=== PATIENT | male | born 1960 | race African-American/Black ===

== ENCOUNTER 2018-10-25 09:12 | Inpatient (IN) | payer OTHER ==
[2018-10-25 09:40] VITALS: BMI 18.4
--- NOTE | 2018-10-25 10:39 | HP ---
COWS - Scale Resting Pulse: 0= [place] 80 or Below Sweatin= Chills/Flushing Restless Observation: 1= Difficult to Sit Still Pupil Size: 1= Pupils >than Normal Bone or Joint Aches: 2= Severe Diffuse Aches Runny Nose/ Eye Tearin= Runny Nose/Eyes GI Upset > 30mins: 1= Stomach Cramp Tremor Observation: 1= Tremor [place], Not Seen Yawning Observation: 2= >3x During Session Anxiety or Irritability: 1=Feels Anxious/Irritable Goose Flesh Skin: 3=Piloerection COWS Score: 15 CIWA Score - Admission Criteria OASAS Guidelines: Admission for Medically Managed Detox: Requires at least one of the followin. CIWA greater than 12 2. Seizures within the past 24 hours 3. Delirium tremens within the past 24 hours 4. Hallucinations within the past 24 hours 5. Acute intervention needed for co occurring medical disorder 6. Acute intervention needed for co occurring psychiatric disorder 7. Severe withdrawal that cannot be handled at a lower level of care (continued vomiting, continued diarrhea, abnormal vital signs) requiring intravenous medication and/or fluids 8. Admission ROS [facility] Chief Complaint: WITHDRAWAL SYMPTOMS Allergies/Adverse Reactions: Allergies Allergy/AdvReac Type Severity Reaction Status Date / Time No Known Allergies Allergy Verified 10/25/18 10:22 History of Present Illness: 58 Y.O. MAN WITH A HISTORY OF HEROIN AND COCAINE DEPENDENCE IS HERE SEEKING DETOX. HE WAS PREVIOUSLY HERE FOR DETOX IN 2007. DOES NOT HAVE SIGNIFICANT PERIOD OF ILLICIT DRUG ABSTINENCE. Exam Limitations: No Limitations - Ebola screening Have you traveled outside of the country in the last 21 days: No Have you had contact with anyone from an Ebola affected area: No Have you been sick,other than usual withdrawal symptoms: No Do you have a fever: No - Review of Systems Constitutional: Chills, Loss of Appetite, Unintentional Wgt. Loss EENT: reports: Tearing, Nose Congestion Respiratory: reports: No Symptoms reported Cardiac: reports: No Symptoms Reported GI: reports: No Symptoms Reported : reports: No Symptoms Reported Musculoskeletal: reports: Back Pain Integumentary: reports: No Symptoms Reported Neuro: reports: Headache Endocrine: reports: No Symptoms Reported Hematology: reports: No Symptoms Reported Psychiatric: reports: Orientated x3, Depressed Other Systems: Reviewed and Negative Patient History - Patient Medical History Hx Anemia: No Hx Asthma: No Hx Chronic Obstructive Pulmonary Disease (COPD): No Hx Cancer: No Hx Cardiac Disorders: No Hx Congestive Heart Failure: No Hx Hypertension: Yes Hx Hypercholesterolemia: No Hx Pacemaker: No HX Cerebrovascular Accident: No Hx Seizures: No Hx Dementia: No Hx Diabetes: No Hx Gastrointestinal Disorders: No Hx Liver Disease: No Hx Genitourinary Disorders: No Hx Sexually Transmitted Disorders: No Hx Renal Disease (ESRD): No Hx Thyroid Disease: No Hx Human Immunodeficiency Virus (HIV): No Hx Hepatitis C: No Hx Depression: Yes Hx Suicide Attempt: No Hx Bipolar Disorder: No Hx Schizophrenia: No Other Medical History: ACUTE KIDNEY INJURY 2 YEARS AGO - Patient Surgical History Past Surgical History: Yes Hx Abdominal Surgery: Yes (HERNIA REPAIR 2002) Anesthesia Reaction: No - PPD History Previous Implant?: Yes Documented Results: Negative w/o proof PPD to be Administered?: Yes - Reproductive History Patient is a Female of Child Bearing Age (11 -55 yrs old): No - Smoking Cessation Smoking history: Current every day smoker Have you smoked in the past 12 months: Yes Aproximately how many cigarettes per day: 5 Initiated information on smoking cessation: Yes 'Breaking Loose' booklet given: 10/25/18 - Substance & Tx. History Hx Substance Use: Yes Substance Use Type: Cocaine, Heroin Hx Substance Use Treatment: Yes (DETOX: 2007) - Substances Abused Heroin Route: Inhalation Frequency: Daily Amount used: 5-6 bags Age of first use: 20 Date of Last Use: 10/25/18 Cocaine Route: Injection Frequency: Daily Amount used: $10 Age of first use: 20 Date of Last Use: 10/23/18 Family Disease History - Family Disease History Family History: Denies Admission Physical Exam [facility] - Vital Signs Vital Signs: Vital Signs - 24 hr 10/25/18 09:37 Temperature 97.9 F Pulse Rate 54 L Respiratory 14 Rate Blood Pressure 155/102 H - Physical General Appearance: Yes: Thin HEENTM: Yes: Hearing grossly Normal, Normal Voice Respiratory: Yes: Chest Non-Tender, Lungs Clear, Normal Breath Sounds, No Respiratory Distress, No Accessory Muscle Use Neck: Yes: No masses,lesions,Nodules Breast: Yes: Breast Exam Deferred Cardiology: Yes: Bradycardia Abdominal: Yes: Non Tender, Flat, Soft Genitourinary: Yes: Within Normal Limits (NO COMPLAINTS REPORTED) Back: Yes: Normal Inspection Musculoskeletal: Yes: full range of Motion, Gait Steady Extremities: Yes: Normal Inspection, Normal Range of Motion, Non-Tender Neurological: Yes: Fully Oriented, Alert, Normal Mood/Affect, Normal Response Integumentary: Yes: Normal Color, Dry, Warm Lymphatic: Yes: Within Normal Limits - Diagnostic (1) Opioid dependence with withdrawal Current Visit: Yes Status: Chronic (2) Cocaine dependence Current Visit: Yes Status: Chronic (3) Nicotine dependence Current Visit: Yes Status: Chronic (4) Underweight Current Visit: Yes Status: Acute (5) Hypertension Current Visit: Yes Status: Chronic Cleared for Admission [facility] - Detox or Rehab [facility] Level of Care: Medically Managed Detox Regimen/Protocol: Methadone [facility] Breath Alcohol Content Breath Alcohol Content: 0 Urine Drug Screen - Results Drug Screen Negative: No Urine Drug Screen Results: [place]AN[place]-Cocaine, OPI-Opiates
[2018-10-25] MEDS ORDERED: LOPERAMIDE HCL 2 MG CAPSULE PO PRN (10:49)
[2018-10-25] MEDS ORDERED: hydrOXYzine PAMOATE 50 MG CAPSULE (FP) PO PRN (10:49)
[2018-10-25] MEDS ORDERED: ACETAMINOPHEN 325 MG TABLET (FP) PO PRN (10:49)
[2018-10-25] MEDS ORDERED: MENTHOL/PHENOL 1 EACH UD MM PRN (10:49)
[2018-10-25] MEDS ORDERED: MAGNESIUM HYDROX 2400MG/30ML ORAL SUSPENSION 30 ML CUP PO PRN (10:49)
[2018-10-25] MEDS ORDERED: MAGNESIUM CITRATE 300 ML BOTTLE PO PRN (10:49)
[2018-10-25] MEDS ORDERED: MAG HYDROX/AL HYDROX/SIMETH 30 ML UNIT-DOSE CUP PO PRN (10:49)
[2018-10-25] MEDS ORDERED: NICOTINE POLACRILEX 2 MG GUM BUC PRN (10:49)
[2018-10-25] MEDS ORDERED: guaiFENesin/D-METHORPHAN HB 10 ML UNIT-DOSE CUPS PO PRN (10:49)
[2018-10-25] MEDS ORDERED: IBUPROFEN 400 MG TABLET (FP) PO PRN (10:49)
[2018-10-25] MEDS ORDERED: P-EPHED 60MG/TRIPROLIDI 2.5MG TABLET PO PRN (10:49)
[2018-10-25] MEDS ORDERED: METHADONE HCL 10 MG TABLET (FOR DETOX USE ONLY) PO ONE ×2 (12:45→23:00)
--- NOTE | 2018-10-25 13:19 | CONSULT ---
[facility] Psychiatric Consult - Data Date of interview: 10/25/18 Admission source: [facility] Identifying data: This is a 58 years old male, , father of three, living with brother, unemployed, with no financial report, here seeking detox reporting withdrawal symptoms. Patient denies psychiatric hospitalization history, edenies suicidal, homicidal history as well. Substance Abuse History: Smoking history: Current every day smoker. Have you smoked in the past 12 months: Yes. Aproximately how many cigarettes per day: 5. Initiated information on smoking cessation: Yes. 'Breaking Loose' booklet given: 10/25/18. - Substance & Tx. History. Hx Substance Use: Yes. Substance Use Type: Cocaine, Heroin. Hx Substance Use Treatment: Yes (DETOX: 2007). - Substances Abused. Heroin. Route: Inhalation. Frequency: Daily. Amount used: 5-6 bags. Age of first use: 20. Date of Last Use: 10/25/18. Cocaine. Route: Injection. Frequency: Daily. Amount used: $10. Age of first use: 20. Date of Last Use: 10/23/18 Medical History: Weight loss history, HTN Psychiatric History: Patient reports history of anxiety and depression, reports taking prior to admission: Seropquel 150mg po qhs with good rersponse. Denies suicidal, homicidal history Physical/Sexual Abuse/Trauma History: Denies Additional Comment: Seropquel 150mg po qhs Mental Status Exam - Mental Status Exam Alert and Oriented to: Person Cognitive Function: Fair Patient Appearance: Unkempt Mood: Sad Affect: Mood Congruent Patient Behavior: Cooperative Speech Pattern: Appropriate Voice Loudness: Mildly Soft/Quiet Thought Process: Circumstantial Thought Disorder: Being Controlled Hallucinations: Denies Suicidal Ideation: Denies Homicidal Ideation: Denies Insight/Judgement: Fair Sleep: Difficulty falling asleep Appetite: Weight loss Muscle strength/Tone: Mild Hypotonicity Gait/Station: Shuffling Additional Comments: Seropquel 150mg po qhs Psychiatric Findings - Problem List ([place] 1, 2,3) (1) Weight loss Current Visit: Yes Status: Acute (2) Cocaine dependence Current Visit: Yes Status: Chronic (3) Hypertension Current Visit: Yes Status: Chronic (4) Nicotine dependence Current Visit: Yes Status: Chronic (5) Opioid dependence with withdrawal Current Visit: Yes Status: Chronic - Initial Treatment Plan Initial Treatment Plan: Seropquel 150mg po qhs
[2018-10-25] MEDS: amLODIPine BESYLATE 5 MG TABLET (FP) PO SCH (13:37)
[2018-10-25] MEDS: diazePAM 5 MG TABLET PO PRN (13:37)
[2018-10-25] MEDS ORDERED: MELATONIN 5 MG TABLETS PO PRN (22:00)
[2018-10-25] MEDS: THIAMINE HCL 100 MG TABLET (FP) PO SCH (22:45)
[2018-10-25] MEDS: QUEtiapine FUMARATE 50 MG TABLET PO SCH (22:45)
[2018-10-26] MEDS ORDERED: METHADONE HCL 10 MG TABLET (FOR DETOX USE ONLY) PO ONE (10:00)
[2018-10-26] MEDS: amLODIPine BESYLATE 5 MG TABLET (FP) PO SCH (10:10)
[2018-10-26] MEDS: PRENATAL VITAMINS W/ FOLIC ACID TABLET (FP) PO SCH (10:10)
[2018-10-26 11:40] LABS: HEMOGLOBIN 13.2 GM/dL (11.7-16.9); MCH 28.8 pg (25.7-33.7); MCHC 32.2 g/dl (32.0-35.9); MEAN CELL VOLUME 89.3 fl (80-96); MEAN PLT VOLUME 10.2 fl (7.5-11.1); PLATELET COUNT 195 K/MM3 (134-434); RBC 4.59 M/mm3 (4.00-5.60); RDW 14.6 % (11.9-15.9); WHITE BLOOD COUNT 4.2 K/mm3 (4.0-10.0)
[2018-10-26 11:45] LABS: ALBUMIN 3.9 g/dl (3.4-5.0); ALK PHOS 72 U/L (45-117); ANION GAP 7 MMOL/L (8-16); BILIRUBIN,TOTAL 0.8 mg/dL (0.2-1); BLOOD UREA NITROGEN 12 mg/dL (7-18); CALCIUM 8.9 mg/dL (8.5-10.1); CHLORIDE 106 mmol/L (98-107); CO2 28 mmol/L (21-32); CREATININE 1.2 mg/dL (0.55-1.3); GLUCOSE,RANDOM 214 mg/dL (74-106); POTASSIUM 3.5 mmol/L (3.5-5.1); SGOT/AST 23 U/L (15-37); SGPT/ALT 24 U/L (13-61); SODIUM 141 mmol/L (136-145); TOT PROT 6.8 g/dl (6.4-8.2)
[2018-10-26] MEDS ORDERED: TRIMETHOBENZAMIDE HCL 200MG/2ML INJ IM PRN (13:45)
--- NOTE | 2018-10-26 13:51 | PN ---
BHS COWS - Scale Resting Pulse: 0= [place] 80 or Below Sweatin= Chills/Flushing Restless Observation: 0= Sits Still Pupil Size: 0= Normal to Room Light Bone or Joint Aches: 2= Severe Diffuse Aches Runny Nose/ Eye Tearin= None GI Upset > 30mins: 2= Nausea/Diarrhea Tremor Observation of Outstretched Hands: 0= None Yawning Observation: 1= 1-2x During Session Anxiety or Irritability: 2=Irritable/Anxious Goose Flesh Skin: 3=Piloerection COWS Score: 11 BHS Progress Note (SOAP) Subjective: Nausea, Chills, Body Aches, Sweating, Fatigue. Objective: PATIENT A & O X 3. IN NO ACUTE DISTRESS. PATIENT DENIES CHEST PAIN. 10/26/18 13:49 Vital Signs Temperature 98.8 F 10/26/18 13:06 Pulse Rate 63 10/26/18 13:06 Respiratory Rate 16 10/26/18 13:06 Blood Pressure 110/63 10/26/18 13:06 O2 Sat by Pulse Oximetry (%) Laboratory Tests 10/25/18 10/26/18 10/26/18 11:00 05:45 05:45 WBC 4.2 RBC 4.59 Hgb 13.2 Hct 41.0 MCV 89.3 MCH 28.8 MCHC 32.2 RDW 14.6 Plt Count 195 MPV 10.2 Sodium 141 Potassium 3.5 Chloride 106 Carbon Dioxide 28 Anion Gap 7 L BUN 12 Creatinine 1.2 Creat Clearance w eGFR > 60 Random Glucose 214 H Calcium 8.9 Total Bilirubin 0.8 AST 23 ALT 24 Alkaline Phosphatase 72 Total Protein 6.8 Albumin 3.9 RPR Titer HIV 1&2 Antibody Screen Negative HIV P24 Antigen Negative 10/26/18 05:45 WBC RBC Hgb Hct MCV MCH MCHC RDW Plt Count MPV Sodium Potassium Chloride Carbon Dioxide Anion Gap BUN Creatinine Creat Clearance w eGFR Random Glucose Calcium Total Bilirubin AST ALT Alkaline Phosphatase Total Protein Albumin RPR Titer Nonreactive HIV 1&2 Antibody Screen HIV P24 Antigen LABS NOTED. 10/26/18 13:50 Assessment: 10/26/18 13:49 WITHDRAWAL SYMPTOMS. Plan: CONTINUE DETOX. PRN TIGAN IM FOR NAUSEA. BGM ACBK FOR ELEVATED ADMISSION RANDOM GLUCOSE LEVEL. INCREASE DAILY PO FLUID INTAKE.
[2018-10-26] MEDS: NICOTINE 14 MG/24 HOURS TOPICAL PATCH TD SCH (13:52)
--- NOTE | 2018-10-26 18:19 | EKG ---
Test Reason : Blood Pressure : / mmHG Vent. Rate : 059 BPM Atrial Rate : 059 BPM P-R Int : 126 ms QRS Dur : 142 ms QT Int : 468 ms P-R-T Axes : 061 022 033 degrees QTc Int : 463 ms SINUS BRADYCARDIA RIGHT BUNDLE BRANCH BLOCK T WAVE ABNORMALITY, CONSIDER ANTERIOR ISCHEMIA ABNORMAL ECG NO PREVIOUS ECGS AVAILABLE Confirmed by MD MATT, MAYDA ([id number]) on 10/26/2018 6:19:34 PM Referred By: Confirmed By:MAYDA GUTIERREZ MD
[2018-10-26] MEDS: THIAMINE HCL 100 MG TABLET (FP) PO SCH (22:16)
[2018-10-26] MEDS: QUEtiapine FUMARATE 50 MG TABLET PO SCH (22:16)
[2018-10-26] MEDS: diazePAM 5 MG TABLET PO PRN (22:17)
[2018-10-27] MEDS ORDERED: METHADONE HCL 5 MG TABLET (FOR DETOX USE ONLY) PO ONE (10:00)
[2018-10-27] MEDS: amLODIPine BESYLATE 5 MG TABLET (FP) PO SCH (10:35)
[2018-10-27] MEDS: PRENATAL VITAMINS W/ FOLIC ACID TABLET (FP) PO SCH (10:35)
[2018-10-27] MEDS: NICOTINE 14 MG/24 HOURS TOPICAL PATCH TD SCH (10:35)
--- NOTE | 2018-10-27 15:12 | PN ---
BHS COWS - Scale Resting Pulse: 0= [place] 80 or Below Sweatin= Chills/Flushing Restless Observation: 1= Difficult to Sit Still Pupil Size: 1= Pupils >than Normal Bone or Joint Aches: 1= Mild Discomfort Runny Nose/ Eye Tearin= Nasal Congestion GI Upset > 30mins: 1= Stomach Cramp Tremor Observation of Outstretched Hands: 1= Tremor [place], Not Seen Yawning Observation: 1= 1-2x During Session Anxiety or Irritability: 1=Feels Anxious/Irritable Goose Flesh Skin: 0=Smooth Skin COWS Score: 9 BHS Progress Note (SOAP) Subjective: body aches joints pain tremor sweating Objective: 10/27/18 15:13 Vital Signs Temperature 99.7 F H 10/27/18 13:15 Pulse Rate 51 L 10/27/18 13:15 Respiratory Rate 18 10/27/18 13:15 Blood Pressure 131/77 10/27/18 13:15 O2 Sat by Pulse Oximetry (%) Laboratory Last Values WBC 4.2 K/mm3 (4.0-10.0) 10/26/18 05:45 RBC 4.59 M/mm3 (4.00-5.60) 10/26/18 05:45 Hgb 13.2 GM/dL (11.7-16.9) 10/26/18 05:45 Hct 41.0 % (35.4-49) 10/26/18 05:45 MCV 89.3 fl (80-96) 10/26/18 05:45 MCH 28.8 pg (25.7-33.7) 10/26/18 05:45 MCHC 32.2 g/dl (32.0-35.9) 10/26/18 05:45 RDW 14.6 % (11.9-15.9) 10/26/18 05:45 Plt Count 195 K/MM3 (134-434) 10/26/18 05:45 MPV 10.2 fl (7.5-11.1) 10/26/18 05:45 Sodium 141 mmol/L (136-145) 10/26/18 05:45 Potassium 3.5 mmol/L (3.5-5.1) 10/26/18 05:45 Chloride 106 mmol/L (98-107) 10/26/18 05:45 Carbon Dioxide 28 mmol/L (21-32) 10/26/18 05:45 Anion Gap 7 MMOL/L (8-16) L 10/26/18 05:45 BUN 12 mg/dL (7-18) 10/26/18 05:45 Creatinine 1.2 mg/dL (0.55-1.3) 10/26/18 05:45 Creat Clearance w eGFR > 60 (>60) 10/26/18 05:45 Random Glucose 214 mg/dL (74-106) H 10/26/18 05:45 Calcium 8.9 mg/dL (8.5-10.1) 10/26/18 05:45 Total Bilirubin 0.8 mg/dL (0.2-1) 10/26/18 05:45 AST 23 U/L (15-37) 10/26/18 05:45 ALT 24 U/L (13-61) 10/26/18 05:45 Alkaline Phosphatase 72 U/L (45-117) 10/26/18 05:45 Total Protein 6.8 g/dl (6.4-8.2) 10/26/18 05:45 Albumin 3.9 g/dl (3.4-5.0) 10/26/18 05:45 RPR Titer Nonreactive (NONREACTIVE) 10/26/18 05:45 HIV 1&2 Antibody Screen Negative 10/25/18 11:00 HIV P24 Antigen Negative 10/25/18 11:00 lab noted Assessment: 10/27/18 15:14 withdrawal sx Plan: continue detox
[2018-10-27] MEDS: QUEtiapine FUMARATE 50 MG TABLET PO SCH (22:06)
[2018-10-27] MEDS: THIAMINE HCL 100 MG TABLET (FP) PO SCH (22:06)
[2018-10-28] MEDS ORDERED: METHADONE HCL 5 MG TABLET (FOR DETOX USE ONLY) PO ONE (10:00)
[2018-10-28] MEDS: PRENATAL VITAMINS W/ FOLIC ACID TABLET (FP) PO SCH (10:51)
[2018-10-28] MEDS: amLODIPine BESYLATE 5 MG TABLET (FP) PO SCH (10:51)
[2018-10-28] MEDS: NICOTINE 14 MG/24 HOURS TOPICAL PATCH TD SCH (10:51)
--- NOTE | 2018-10-28 12:56 | PN ---
BHS Progress Note (SOAP) Subjective: body aches joints pain gi distress restlessness Objective: 10/28/18 12:55 Vital Signs Temperature 97.6 F 10/28/18 09:27 Pulse Rate 82 10/28/18 09:27 Respiratory Rate 18 10/28/18 09:27 Blood Pressure 124/75 10/28/18 09:27 O2 Sat by Pulse Oximetry (%) Laboratory Last Values WBC 4.2 K/mm3 (4.0-10.0) 10/26/18 05:45 RBC 4.59 M/mm3 (4.00-5.60) 10/26/18 05:45 Hgb 13.2 GM/dL (11.7-16.9) 10/26/18 05:45 Hct 41.0 % (35.4-49) 10/26/18 05:45 MCV 89.3 fl (80-96) 10/26/18 05:45 MCH 28.8 pg (25.7-33.7) 10/26/18 05:45 MCHC 32.2 g/dl (32.0-35.9) 10/26/18 05:45 RDW 14.6 % (11.9-15.9) 10/26/18 05:45 Plt Count 195 K/MM3 (134-434) 10/26/18 05:45 MPV 10.2 fl (7.5-11.1) 10/26/18 05:45 Sodium 141 mmol/L (136-145) 10/26/18 05:45 Potassium 3.5 mmol/L (3.5-5.1) 10/26/18 05:45 Chloride 106 mmol/L (98-107) 10/26/18 05:45 Carbon Dioxide 28 mmol/L (21-32) 10/26/18 05:45 Anion Gap 7 MMOL/L (8-16) L 10/26/18 05:45 BUN 12 mg/dL (7-18) 10/26/18 05:45 Creatinine 1.2 mg/dL (0.55-1.3) 10/26/18 05:45 Creat Clearance w eGFR > 60 (>60) 10/26/18 05:45 Random Glucose 214 mg/dL (74-106) H 10/26/18 05:45 Calcium 8.9 mg/dL (8.5-10.1) 10/26/18 05:45 Total Bilirubin 0.8 mg/dL (0.2-1) 10/26/18 05:45 AST 23 U/L (15-37) 10/26/18 05:45 ALT 24 U/L (13-61) 10/26/18 05:45 Alkaline Phosphatase 72 U/L (45-117) 10/26/18 05:45 Total Protein 6.8 g/dl (6.4-8.2) 10/26/18 05:45 Albumin 3.9 g/dl (3.4-5.0) 10/26/18 05:45 RPR Titer Nonreactive (NONREACTIVE) 10/26/18 05:45 HIV 1&2 Antibody Screen Negative 10/25/18 11:00 HIV P24 Antigen Negative 10/25/18 11:00 lab noted Assessment: 10/28/18 12:55 withdrawal sx Plan: continue detox
[2018-10-28] MEDS: QUEtiapine FUMARATE 50 MG TABLET PO SCH (22:17)
[2018-10-28] MEDS: THIAMINE HCL 100 MG TABLET (FP) PO SCH (22:17)
[2018-10-29] MEDS ORDERED: METHADONE HCL 10 MG TABLET (FOR DETOX USE ONLY) PO ONE (10:00)
[2018-10-29] MEDS: NICOTINE 14 MG/24 HOURS TOPICAL PATCH TD SCH (10:29)
[2018-10-29] MEDS: amLODIPine BESYLATE 5 MG TABLET (FP) PO SCH (10:29)
[2018-10-29] MEDS: PRENATAL VITAMINS W/ FOLIC ACID TABLET (FP) PO SCH (10:29)
--- NOTE | 2018-10-29 16:35 | PN ---
BHS Progress Note (SOAP) Subjective: Body Aches, Sweating. Objective: PATIENT A & O X 3. IN NO ACUTE DISTRESS. 10/29/18 16:34 Vital Signs Temperature 99.4 F 10/29/18 13:36 Pulse Rate 54 L 10/29/18 13:36 Respiratory Rate 18 10/29/18 13:36 Blood Pressure 108/66 10/29/18 13:36 O2 Sat by Pulse Oximetry (%) Laboratory Tests 10/25/18 10/26/18 10/26/18 11:00 05:45 05:45 WBC 4.2 RBC 4.59 Hgb 13.2 Hct 41.0 MCV 89.3 MCH 28.8 MCHC 32.2 RDW 14.6 Plt Count 195 MPV 10.2 Sodium 141 Potassium 3.5 Chloride 106 Carbon Dioxide 28 Anion Gap 7 L BUN 12 Creatinine 1.2 Creat Clearance w eGFR > 60 POC Glucometer Random Glucose 214 H Calcium 8.9 Total Bilirubin 0.8 AST 23 ALT 24 Alkaline Phosphatase 72 Total Protein 6.8 Albumin 3.9 RPR Titer HIV 1&2 Antibody Screen Negative HIV P24 Antigen Negative 10/26/18 10/26/18 05:45 16:33 WBC RBC Hgb Hct MCV MCH MCHC RDW Plt Count MPV Sodium Potassium Chloride Carbon Dioxide Anion Gap BUN Creatinine Creat Clearance w eGFR POC Glucometer 101 Random Glucose Calcium Total Bilirubin AST ALT Alkaline Phosphatase Total Protein Albumin RPR Titer Nonreactive HIV 1&2 Antibody Screen HIV P24 Antigen LABS NOTED. Assessment: 10/29/18 16:34 WITHDRAWAL SYMPTOMS. Plan: CONTINUE DETOX.
[2018-10-29] MEDS: QUEtiapine FUMARATE 50 MG TABLET PO SCH (22:18)
[2018-10-29] MEDS: THIAMINE HCL 100 MG TABLET (FP) PO SCH (22:18)
[2018-10-30] MEDS ORDERED: METHADONE HCL 5 MG TABLET (FOR DETOX USE ONLY) PO ONE (06:00)
[2018-10-30 06:10] VITALS: BP 117/68; PULSE 49; TEMP 97.3
--- NOTE | 2018-10-30 19:52 | DS ---
[facility] Detox Discharge Summary Admission Date: 10/25/18 Discharge Date: 10/30/18 - History Present History: Cocaine Dependence, Opioid Dependence Additional Comments: PATIENT HAD EXPRESSED INTEREST IN ATTENDING [facility] ([place], [place]) FOR AFTERCARE. HOWEVER, NO BEDS AREA AVAILABLE AT [facility] AT THIS TIME. THUS, PATIENT ELECTING TO APPLY ON HIS OWN FOR ADMISSION TO [facility] ([place], [place]) FOR AFTERCARE. PATIENT ADVISED TO FOLLOW-UP FOR HISTORY OF HTN (PATIENT REPORTS HISTORY OF LIMITED COMPLIANCE WITH ANTI- HYPERTENSIVE MEDICATION IN PAST) WITH [facility] [facility] DR. PORRAS ([place], [place] WHEN POSSIBLE. PATIENT VERBALIZED UNDERSTANDING OF RECOMMENDATION. PRESCRIPTION FOR AMLODIPINE SENT TO PATIENT;'S PHARMACY ([facility] [place], [place]) TO COVER PATIENT FOR THE INTERIM. PATIENT WAS DISCHARGED FROM DETOX UNIT NI STABLE MEDICAL CONDITION. Pertinent Past History: HTN, Weight Loss, Depression, History of Acute Kidney Injury, Nicotine Dependence. - Physical Exam Results Vital Signs: Vital Signs Temperature 97.3 F L 10/30/18 06:10 Pulse Rate 49 L 10/30/18 06:10 Respiratory Rate 18 10/30/18 06:10 Blood Pressure 117/68 10/30/18 06:10 O2 Sat by Pulse Oximetry (%) Pertinent Admission Physical Exam Findings: WITHDRAWAL SYMPTOMS. Laboratory Tests 10/25/18 10/26/18 10/26/18 11:00 05:45 05:45 WBC 4.2 RBC 4.59 Hgb 13.2 Hct 41.0 MCV 89.3 MCH 28.8 MCHC 32.2 RDW 14.6 Plt Count 195 MPV 10.2 Sodium 141 Potassium 3.5 Chloride 106 Carbon Dioxide 28 Anion Gap 7 L BUN 12 Creatinine 1.2 Creat Clearance w eGFR > 60 POC Glucometer Random Glucose 214 H Calcium 8.9 Total Bilirubin 0.8 AST 23 ALT 24 Alkaline Phosphatase 72 Total Protein 6.8 Albumin 3.9 RPR Titer HIV 1&2 Antibody Screen Negative HIV P24 Antigen Negative 10/26/18 10/26/18 05:45 16:33 WBC RBC Hgb Hct MCV MCH MCHC RDW Plt Count MPV Sodium Potassium Chloride Carbon Dioxide Anion Gap BUN Creatinine Creat Clearance w eGFR POC Glucometer 101 Random Glucose Calcium Total Bilirubin AST ALT Alkaline Phosphatase Total Protein Albumin RPR Titer Nonreactive HIV 1&2 Antibody Screen HIV P24 Antigen LABS NOTED. - Treatment Hospital Course: Detox Protocol Followed, Detoxed Safely, Responded well, Discharged Condition Good, Rehab Referral Accepted Patient has Accepted a Rehab Referral to: [facility] ([place], [place]). - Medication Discharge Medications: Ambulatory Orders Quetiapine Fumarate [Seroquel -] 150 mg PO HS #0 tablet 03/11/13 Quetiapine Fumarate "Xr" [Seroquel XR] 150 mg PO HS@1999 #30 tablet 08/26/14 Quetiapine Fumarate [Seroquel -] 150 mg PO HS 10/25/18 Quetiapine Fumarate [Seroquel] 100 mg PO HS #60 tab 10/25/18 Amlodipine Besylate [Norvasc -] 5 mg PO DAILY 14 Days #14 tablet 10/30/18 - Diagnosis (1) Weight loss Status: Acute (2) Cocaine dependence Status: Chronic Qualifiers: Substance use status: uncomplicated Qualified Code(s): F14.20 - Cocaine dependence, uncomplicated (3) Hypertension Status: Chronic Qualifiers: Hypertension type: essential hypertension Qualified Code(s): I10 - Essential (primary) hypertension (4) Nicotine dependence Status: Chronic (5) Opioid dependence with withdrawal Status: Acute - AMA Did Patient Leave Against Medical Advice: No
== END 2018-10-30 10:44 | disposition home or self-care (01) | DRG 773 ==
LOC: YASAS 09:12 → MERGE 12:15 → Y3N 12:15
PROVIDERS: ADMIT Neuromusculoskeletal Medicine & OMM; ATTEND Neuromusculoskeletal Medicine & OMM
PROC: HZ2ZZZZ Detoxification Services for Substance Abuse Treatment (ICD-10-PCS; principal; 2018-10-25)
DX: F11.23 Opioid dependence with withdrawal (principal); F14.20 Cocaine dependence, uncomplicated; F17.210 Nicotine dependence, cigarettes, uncomplicated; I10 Essential (primary) hypertension; R00.1 Bradycardia, unspecified
CPT/HCPCS: 36415; 80053; 82962; 85027; 86593; 87389; 93005; 93010

== ENCOUNTER 2019-02-21 10:45 | Inpatient (IN) | payer SELFPAY ==
[2019-02-21 11:56] VITALS: BMI 18.6
--- NOTE | 2019-02-21 13:00 | HP ---
COWS - Scale Resting Pulse: 1= [place] 81-100 Sweatin= Chills/Flushing Restless Observation: 1= Difficult to Sit Still Pupil Size: 1= Pupils >than Normal Bone or Joint Aches: 2= Severe Diffuse Aches Runny Nose/ Eye Tearin= Runny Nose/Eyes GI Upset > 30mins: 2= Nausea/Diarrhea Tremor Observation: 1= Tremor [place], Not Seen Yawning Observation: 2= >3x During Session Anxiety or Irritability: 1=Feels Anxious/Irritable Goose Flesh Skin: 0=Smooth Skin COWS Score: 14 CIWA Score - Admission Criteria OASAS Guidelines: Admission for Medically Managed Detox: Requires at least one of the followin. CIWA greater than 12 2. Seizures within the past 24 hours 3. Delirium tremens within the past 24 hours 4. Hallucinations within the past 24 hours 5. Acute intervention needed for co occurring medical disorder 6. Acute intervention needed for co occurring psychiatric disorder 7. Severe withdrawal that cannot be handled at a lower level of care (continued vomiting, continued diarrhea, abnormal vital signs) requiring intravenous medication and/or fluids 8. Admission ROS [facility] - [facility] Chief Complaint: i need help to stop using heroin and cocaine Allergies/Adverse Reactions: Allergies Allergy/AdvReac Type Severity Reaction Status Date / Time No Known Allergies Allergy Verified 02/21/19 11:45 History of Present Illness: this 58 year old male with heroin and cocaine dependence,seeking detox, withdrawal symptom, multiple admissions in detox,last detox [facility] 10/25/18 to 10/30/18 keep relapsing nicotine dependence 5 cigarette,does not want nicotine replacement weight loss no significant period of sobriety plan for rehab after detox anxiety,depression,insomnia Exam Limitations: No Limitations - Ebola screening Have you traveled outside of the country in the last 21 days: No Have you had contact with anyone from an Ebola affected area: No Do you have a fever: No - Review of Systems Constitutional: Chills, Loss of Appetite, Malaise, Night Sweats, Changes in sleep, Weakness, Unintentional Wgt. Loss EENT: reports: Tearing, Nose Congestion Respiratory: reports: No Symptoms reported Cardiac: reports: No Symptoms Reported GI: reports: Diarrhea, Nausea, Vomiting, Abdominal cramping : reports: No Symptoms Reported Musculoskeletal: reports: Back Pain, Joint Pain, Muscle Pain Integumentary: reports: Dryness Neuro: reports: Headache, Tremors Endocrine: reports: No Symptoms Reported Hematology: reports: No Symptoms Reported Psychiatric: reports: No Sypmtoms Reported, Judgement Intact, Mood/Affect Appropiate, Orientated x3, Anxious, Depressed, other (insomnia) Other Systems: Reviewed and Negative Patient History - Patient Medical History Hx Anemia: No Hx Asthma: No Hx Chronic Obstructive Pulmonary Disease (COPD): No Hx Cancer: No Hx Cardiac Disorders: No Hx Congestive Heart Failure: No Hx Hypertension: Yes (non compliance) Hx Hypercholesterolemia: No Hx Pacemaker: No HX Cerebrovascular Accident: No Hx Seizures: No Hx Dementia: No Hx Diabetes: No Hx Gastrointestinal Disorders: No Hx Liver Disease: No Hx Genitourinary Disorders: No Hx Sexually Transmitted Disorders: No Hx Renal Disease (ESRD): No Hx Thyroid Disease: No Hx Human Immunodeficiency Virus (HIV): No (last 10/30 negative) Hx Hepatitis C: No Hx Depression: Yes (anxiety) Hx Suicide Attempt: No Hx Bipolar Disorder: No Hx Schizophrenia: No Other Medical History: no suicidal,no homicidal,insomnia - Patient Surgical History Past Surgical History: Yes Hx Neurologic Surgery: No Hx Cataract Extraction: No Hx Cardiac Surgery: No Hx Lung Surgery: No Hx Breast Surgery: No Hx Breast Biopsy: No Hx Abdominal Surgery: Yes (HERNIA REPAIR 2002) Hx Appendectomy: No Hx Cholecystectomy: No Hx Genitourinary Surgery: No Hx Section: No Hx Orthopedic Surgery: No Anesthesia Reaction: No - PPD History Previous Implant?: Yes Documented Results: Negative w/proof Implanted On Prior [facility] Admission?: Yes Date: 10/27/18 Results: 0 mm PPD to be Administered?: No - Smoking Cessation Smoking history: Current every day smoker Have you smoked in the past 12 months: Yes Aproximately how many cigarettes per day: 5 Hx Chewing Tobacco Use: No Initiated information on smoking cessation: Yes 'Breaking Loose' booklet given: 02/21/19 - Substance & Tx. History Hx Alcohol Use: No Hx Substance Use: Yes Substance Use Type: Cocaine, Heroin Hx Substance Use Treatment: Yes ([facility] 10/25/18 to 10/30/18) - Substances abused Heroin Substance route: Inhalation Frequency: Daily Amount used: 7 bags Age of first use: 15 Date of last use: 02/21/19 Cocaine Substance route: Inhalation Frequency: 1-2 times per week Amount used: $30 Age of first use: 15 Date of last use: 02/20/19 Crack Substance route: Smoking Frequency: 1-2 times per week Amount used: 1 joint Age of first use: 15 Date of last use: 02/20/19 Family Disease History - Family Disease History Family Disease History: [place]: Mother (breast cancer,), Other: Father ( murmured), Son (deseased) Admission Physical Exam [facility] - Vital Signs Vital Signs: Vital Signs - 24 hr 02/21/19 11:45 Temperature 97.0 F L Pulse Rate 83 Respiratory 20 Rate Blood Pressure 134/93 - Physical General Appearance: Yes: Moderate Distress, Tremorous, Sweating, Anxious HEENTM: Yes: Normal ENT Inspection, [place], Pharynx Normal Respiratory: Yes: Lungs Clear, Normal Breath Sounds, No Respiratory Distress Neck: Yes: Within Normal Limits, Supple, Trachea in good position Breast: Yes: Within Normal Limits Cardiology: Yes: Within Normal Limits, Regular Rhythm, Regular Rate, S1, S2 Abdominal: Yes: Within Normal Limits, Normal Bowel Sounds, Non Tender, Flat, Soft, Surgical Scar (epigastric hernia) Genitourinary: Yes: Within Normal Limits Back: Yes: Muscle Spasm Musculoskeletal: Yes: Back pain, Muscle Pain Extremities: Yes: Tremors 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 NML intact, Fully Oriented, Alert, Motor Strength 5/5 Integumentary: Yes: Dry Lymphatic: Yes: Within Normal Limits - Diagnostic (1) Opioid dependence with withdrawal Current Visit: No Status: Acute (2) Weight loss Current Visit: No Status: Acute (3) Cocaine dependence Current Visit: No Status: Chronic Qualifiers: Substance use status: uncomplicated Qualified Code(s): F14.20 - Cocaine dependence, uncomplicated (4) Hypertension Current Visit: No Status: Chronic Qualifiers: Hypertension type: essential hypertension Qualified Code(s): I10 - Essential (primary) hypertension (5) Nicotine dependence Current Visit: No Status: Chronic (6) Schizoaffective disorder Current Visit: No Status: Chronic (7) Insomnia secondary to depression with anxiety Current Visit: Yes Status: Acute Cleared for Admission [facility] - Detox or Rehab [facility] Level of Care: Medically Managed Detox Regimen/Protocol: Methadone Breathalyzer - Breathalyzer Breathalyzer: 0 Urine Drug Screen - Test Device Lot number: [id number] Expiration date: 11/11/20 - Control Is test valid?: Yes - Results Drug screen NEGATIVE: No Urine drug screen results: FRANCHESKA-Cocaine, FEN-Fentanyl, MOP-Opiates, OXY-Oxycodone Inpatient Rehab Admission - Rehab Decision to Admit Inpatient rehab admission?: No
[2019-02-21] MEDS ORDERED: BISMUTH SUBSALICYLATE 262 MG/15 ML BTL PO PRN (13:08)
[2019-02-21] MEDS ORDERED: hydrOXYzine PAMOATE 25 MG CAPSULE (FP) PO PRN (13:08)
[2019-02-21] MEDS ORDERED: MAG HYDROX/AL HYDROX/SIMETH 30 ML UNIT-DOSE CUP PO PRN (13:08)
[2019-02-21] MEDS ORDERED: cloNIDine HCL 0.1 MG TABLET PO PRN (13:08)
[2019-02-21] MEDS ORDERED: MAGNESIUM CITRATE 300 ML BOTTLE PO PRN (13:08)
[2019-02-21] MEDS ORDERED: METHOCARBAMOL 500 MG TABLET PO PRN (13:08)
[2019-02-21] MEDS ORDERED: ACETAMINOPHEN 325 MG TABLET (FP) PO PRN ×2 (13:08)
[2019-02-21] MEDS ORDERED: IBUPROFEN 400 MG TABLET (FP) PO PRN (13:08)
[2019-02-21] MEDS ORDERED: MAGNESIUM HYDROX 2400MG/30ML ORAL SUSPENSION 30 ML CUP PO PRN (13:08)
[2019-02-21] MEDS ORDERED: MENTHOL/PHENOL 1 EACH UD MM PRN (13:08)
[2019-02-21] MEDS ORDERED: MELATONIN 5 MG TABLETS PO PRN (13:08)
[2019-02-21] MEDS ORDERED: diazePAM 5 MG TABLET PO PRN ×2 (13:17→23:00)
[2019-02-21] MEDS ORDERED: METHADONE HCL 10 MG TABLET (FOR DETOX USE ONLY) PO ONE ×3 (14:10→23:00)
[2019-02-21 16:57] LABS: HEMATOCRIT 45.4 % (35.4-49); HEMOGLOBIN 14.5 GM/dL (11.7-16.9); MCH 28.7 pg (25.7-33.7); MEAN CELL VOLUME 89.7 fl (80-96); MEAN PLT VOLUME 10.1 fl (7.5-11.1); PLATELET COUNT 213 K/MM3 (134-434); RBC 5.07 M/mm3 (4.00-5.60); RDW 14.4 % (11.9-15.9); WHITE BLOOD COUNT 5.2 K/mm3 (4.0-10.0)
[2019-02-21 17:09] LABS: BILIRUBIN,TOTAL 0.4 mg/dL (0.2-1); CALCIUM 9.1 mg/dL (8.5-10.1); CREATININE 1.3 mg/dL (0.55-1.3); POTASSIUM 3.9 mmol/L (3.5-5.1); TOT PROT 7.2 g/dl (6.4-8.2)
[2019-02-21] MEDS: THIAMINE HCL 100 MG TABLET (FP) PO SCH (23:09)
[2019-02-22 00:58] LABS: EPI CELLS 2.2 /HPF (0-5/HPF); PH,URINE 5.5 (5.0-8.0); URINE APPEARANCE CLOUDY; URINE BACTERIA 7.3 /hpf (NEGATIVE); URINE BILIRUBIN NEGATIVE (NEGATIVE); URINE CASTS 4 /lpf (0-8); URINE COLOR DK YELLOW; URINE GLUCOSE (UA) NEGATIVE (NEGATIVE); URINE KETONE TRACE (NEGATIVE); URINE LEUK ESTERASE 2+ (NEGATIVE); URINE NITRITE NEGATIVE (NEGATIVE); URINE PROTEIN 1+ (NEGATIVE); URINE RBC 3 /hpf (0-4); URINE WBC 329 /hpf (0-5)
[2019-02-22] MEDS ORDERED: diazePAM 5 MG TABLET PO PRN (01:09)
[2019-02-22 01:30] LABS: URINE CRYSTALS MODERATE /hpf
[2019-02-22] MEDS ORDERED: METHADONE HCL 10 MG TABLET (FOR DETOX USE ONLY) PO ONE (10:00)
[2019-02-22] MEDS ORDERED: cloNIDine HCL 0.1 MG TABLET PO PRN (10:05)
--- NOTE | 2019-02-22 10:10 | PN ---
BHS COWS - Scale Resting Pulse: 0= [place] 80 or Below Sweatin= Chills/Flushing Restless Observation: 1= Difficult to Sit Still Pupil Size: 1= Pupils >than Normal Bone or Joint Aches: 1= Mild Discomfort Runny Nose/ Eye Tearin= Nasal Congestion GI Upset > 30mins: 1= Stomach Cramp Tremor Observation of Outstretched Hands: 2= Slight Tremor Visible Yawning Observation: 1= 1-2x During Session Anxiety or Irritability: 2=Irritable/Anxious Goose Flesh Skin: 0=Smooth Skin COWS Score: 11 BHS Progress Note (SOAP) Subjective: long history of hypertension none adherence with medication begin amlopidine 5 mg po daily clonidine 0.1 mg po q6h prn for bp elevation Objective: 02/22/19 10:11 Vital Signs Temperature 95.9 F L 02/22/19 09:07 Pulse Rate 52 L 02/22/19 09:07 Respiratory Rate 16 02/22/19 09:07 Blood Pressure 160/97 02/22/19 09:07 O2 Sat by Pulse Oximetry (%) Laboratory Last Values WBC 5.2 K/mm3 (4.0-10.0) 02/21/19 13:40 RBC 5.07 M/mm3 (4.00-5.60) 02/21/19 13:40 Hgb 14.5 GM/dL (11.7-16.9) 02/21/19 13:40 Hct 45.4 % (35.4-49) 02/21/19 13:40 MCV 89.7 fl (80-96) 02/21/19 13:40 MCH 28.7 pg (25.7-33.7) 02/21/19 13:40 MCHC 32.0 g/dl (32.0-35.9) 02/21/19 13:40 RDW 14.4 % (11.9-15.9) 02/21/19 13:40 Plt Count 213 K/MM3 (134-434) 02/21/19 13:40 MPV 10.1 fl (7.5-11.1) 02/21/19 13:40 Sodium 141 mmol/L (136-145) 02/21/19 13:40 Potassium 3.9 mmol/L (3.5-5.1) 02/21/19 13:40 Chloride 105 mmol/L (98-107) 02/21/19 13:40 Carbon Dioxide 33 mmol/L (21-32) H 02/21/19 13:40 Anion Gap 4 MMOL/L (8-16) L 02/21/19 13:40 BUN 24 mg/dL (7-18) H 02/21/19 13:40 Creatinine 1.3 mg/dL (0.55-1.3) 02/21/19 13:40 Est GFR (CKD-EPI)AfAm 69.71 02/21/19 13:40 Est GFR (CKD-EPI)NonAf 60.14 02/21/19 13:40 Random Glucose 98 mg/dL (74-106) 02/21/19 13:40 Calcium 9.1 mg/dL (8.5-10.1) 02/21/19 13:40 Total Bilirubin 0.4 mg/dL (0.2-1) 02/21/19 13:40 AST 21 U/L (15-37) 02/21/19 13:40 ALT 25 U/L (13-61) 02/21/19 13:40 Alkaline Phosphatase 77 U/L (45-117) 02/21/19 13:40 Total Protein 7.2 g/dl (6.4-8.2) 02/21/19 13:40 Albumin 4.0 g/dl (3.4-5.0) 02/21/19 13:40 Urine Color Dk yellow 02/21/19 14:37 Urine Appearance Cloudy 02/21/19 14:37 Urine pH 5.5 (5.0-8.0) 02/21/19 14:37 Ur Specific [place] 1.028 (1.010-1.035) 02/21/19 14:37 Urine Protein 1+ (NEGATIVE) H 02/21/19 14:37 Urine Glucose (UA) Negative (NEGATIVE) 02/21/19 14:37 Urine Ketones Trace (NEGATIVE) H 02/21/19 14:37 Urine Blood Trace (NEGATIVE) 02/21/19 14:37 Urine Nitrite Negative (NEGATIVE) 02/21/19 14:37 Urine Bilirubin Negative (NEGATIVE) 02/21/19 14:37 Urine Urobilinogen 1.0 mg/dL (0.2-1.0) 02/21/19 14:37 Ur Leukocyte Esterase 2+ (NEGATIVE) H 02/21/19 14:37 Urine WBC (Auto) 329 /hpf (0-5) 02/21/19 14:37 Urine RBC (Auto) 3 /hpf (0-4) 02/21/19 14:37 Urine Casts (Auto) 4 /lpf (0-8) 02/21/19 14:37 U Epithel Cells (Auto) 2.2 /HPF (0-5/HPF) 02/21/19 14:37 Urine Crystals (Auto) Moderate /hpf 02/21/19 14:37 Urine Bacteria (Auto) 7.3 /hpf (NEGATIVE) 02/21/19 14:37 RPR Titer Nonreactive (NONREACTIVE) 02/21/19 13:40 lab noted uti bun elevation Assessment: 02/22/19 10:13 opiate withdrawal sx repeat bun uti Plan: continue opiate detox bactrim ds bid
[2019-02-22] MEDS: amLODIPine BESYLATE 5 MG TABLET (FP) PO SCH (10:45)
[2019-02-22] MEDS: PRENATAL VITAMINS W/ FOLIC ACID TABLET (FP) PO SCH (10:47)
[2019-02-22] MEDS: SULFAMETHOXAZOLE/TRIMETHOPRIM 800MG/160MG D.S. TABLET PO SCH ×2 (10:47→22:30)
[2019-02-22] MEDS: THIAMINE HCL 100 MG TABLET (FP) PO SCH (22:30)
[2019-02-23] MEDS ORDERED: METHADONE HCL 10 MG TABLET (FOR DETOX USE ONLY) PO ONE (10:00)
[2019-02-23] MEDS: SULFAMETHOXAZOLE/TRIMETHOPRIM 800MG/160MG D.S. TABLET PO SCH ×2 (10:24→22:26)
[2019-02-23] MEDS: PRENATAL VITAMINS W/ FOLIC ACID TABLET (FP) PO SCH (10:24)
[2019-02-23] MEDS: amLODIPine BESYLATE 5 MG TABLET (FP) PO SCH (10:24)
--- NOTE | 2019-02-23 14:28 | PN ---
BHS COWS - Scale Resting Pulse: 0= [place] 80 or Below Sweatin= Chills/Flushing Restless Observation: 1= Difficult to Sit Still Pupil Size: 0= Normal to Room Light Bone or Joint Aches: 1= Mild Discomfort Runny Nose/ Eye Tearin= Nasal Congestion GI Upset > 30mins: 1= Stomach Cramp Tremor Observation of Outstretched Hands: 1= Tremor [place], Not Seen Yawning Observation: 1= 1-2x During Session Anxiety or Irritability: 1=Feels Anxious/Irritable Goose Flesh Skin: 0=Smooth Skin COWS Score: 8 BHS Progress Note (SOAP) Subjective: doing well with methadone detox regimen feeling better more energy social with peers in day room Objective: 02/23/19 14:29 Vital Signs Temperature 98.5 F 02/23/19 13:28 Pulse Rate 51 L 02/23/19 13:28 Respiratory Rate 18 02/23/19 13:28 Blood Pressure 128/75 02/23/19 13:28 O2 Sat by Pulse Oximetry (%) Laboratory Last Values WBC 5.2 K/mm3 (4.0-10.0) 02/21/19 13:40 RBC 5.07 M/mm3 (4.00-5.60) 02/21/19 13:40 Hgb 14.5 GM/dL (11.7-16.9) 02/21/19 13:40 Hct 45.4 % (35.4-49) 02/21/19 13:40 MCV 89.7 fl (80-96) 02/21/19 13:40 MCH 28.7 pg (25.7-33.7) 02/21/19 13:40 MCHC 32.0 g/dl (32.0-35.9) 02/21/19 13:40 RDW 14.4 % (11.9-15.9) 02/21/19 13:40 Plt Count 213 K/MM3 (134-434) 02/21/19 13:40 MPV 10.1 fl (7.5-11.1) 02/21/19 13:40 Sodium 141 mmol/L (136-145) 02/21/19 13:40 Potassium 3.9 mmol/L (3.5-5.1) 02/21/19 13:40 Chloride 105 mmol/L (98-107) 02/21/19 13:40 Carbon Dioxide 33 mmol/L (21-32) H 02/21/19 13:40 Anion Gap 4 MMOL/L (8-16) L 02/21/19 13:40 BUN 24 mg/dL (7-18) H 02/21/19 13:40 Creatinine 1.3 mg/dL (0.55-1.3) 02/21/19 13:40 Est GFR (CKD-EPI)AfAm 69.71 02/21/19 13:40 Est GFR (CKD-EPI)NonAf 60.14 02/21/19 13:40 Random Glucose 98 mg/dL (74-106) 02/21/19 13:40 Calcium 9.1 mg/dL (8.5-10.1) 02/21/19 13:40 Total Bilirubin 0.4 mg/dL (0.2-1) 02/21/19 13:40 AST 21 U/L (15-37) 02/21/19 13:40 ALT 25 U/L (13-61) 02/21/19 13:40 Alkaline Phosphatase 77 U/L (45-117) 02/21/19 13:40 Total Protein 7.2 g/dl (6.4-8.2) 02/21/19 13:40 Albumin 4.0 g/dl (3.4-5.0) 02/21/19 13:40 Urine Color Dk yellow 02/21/19 14:37 Urine Appearance Cloudy 02/21/19 14:37 Urine pH 5.5 (5.0-8.0) 02/21/19 14:37 Ur Specific [place] 1.028 (1.010-1.035) 02/21/19 14:37 Urine Protein 1+ (NEGATIVE) H 02/21/19 14:37 Urine Glucose (UA) Negative (NEGATIVE) 02/21/19 14:37 Urine Ketones Trace (NEGATIVE) H 02/21/19 14:37 Urine Blood Trace (NEGATIVE) 02/21/19 14:37 Urine Nitrite Negative (NEGATIVE) 02/21/19 14:37 Urine Bilirubin Negative (NEGATIVE) 02/21/19 14:37 Urine Urobilinogen 1.0 mg/dL (0.2-1.0) 02/21/19 14:37 Ur Leukocyte Esterase 2+ (NEGATIVE) H 02/21/19 14:37 Urine WBC (Auto) 329 /hpf (0-5) 02/21/19 14:37 Urine RBC (Auto) 3 /hpf (0-4) 02/21/19 14:37 Urine Casts (Auto) 4 /lpf (0-8) 02/21/19 14:37 U Epithel Cells (Auto) 2.2 /HPF (0-5/HPF) 02/21/19 14:37 Urine Crystals (Auto) Moderate /hpf 02/21/19 14:37 Urine Bacteria (Auto) 7.3 /hpf (NEGATIVE) 02/21/19 14:37 RPR Titer Nonreactive (NONREACTIVE) 02/21/19 13:40 lab noted 02/23/19 14:31 bun pending Assessment: 02/23/19 14:31 opiate withdrawal sx Plan: continue detox
--- NOTE | 2019-02-23 16:03 | CONSULT ---
[facility] Psychiatric Consult - Data Date of interview: 02/23/19 Admission source: [facility] Identifying data: Readmission to [facility] for this 58 y/o AA male self- referred for detoxification (heroin). Examined at [address] [place] [phone]. Patient is , a father of three, domiciled, unemployed and deprived of income. Substance Abuse History: Confirmed by the patient. Details in current [facility] report : Smoking history: Current every day smoker. Have you smoked in the past 12 months: Yes. Aproximately how many cigarettes per day: 5. Hx Chewing Tobacco Use: No. Initiated information on smoking cessation: Yes. 'Breaking Loose' booklet given: 02/21/19. - Substance & Tx. History. Hx Alcohol Use: No. Hx Substance Use: Yes. Substance Use Type: Cocaine, Heroin. Hx Substance Use Treatment: Yes ([facility] 10/25/18 to 10/30/18). - Substances abused. Heroin. Substance route: Inhalation. Frequency: Daily. Amount used: 7 bags. Age of first use: 15. Date of last use: 02/21/19. Cocaine. Substance route : Inhalation. Frequency: 1-2 times per week. Amount used: $30. Age of first use: 15. Date of last use: 02/20/19. Crack. Substance route: Smoking. Frequency: 1-2 times per week. Amount used: 1 joint. Age of first use: 15. Date of last use: 02/20/19 Medical History: Remarkable for hypertension and a history of herniorraphy. Psychiatric History: Patient indicates a remote history of psychiatric hospitalization (age 13). Reason not recalled by the patient. Mr Yanez does endorse the diagnosis of bipolar disorder (as per records at [facility] : schizoaffective disorder). History of chronic non-compliance with psychiatric outpatient services. Patient states that he is on xanax + seroquel (dose not recalled and prescriber not identified). Patient is reportedly known to [facility] O[facility] services. No history of suicide attempts. Physical/Sexual Abuse/Trauma History: Patient denies history of abuse. Severe trauma : of a son years ago. Additional Comment: Urine drug screen results: FRANCHESKA-Cocaine, FEN-Fentanyl, MOP- Opiates, OXY-Oxycodone. Noted. Mental Status Exam - Mental Status Exam Alert and Oriented to: Place, Person Cognitive Function: Impaired Patient Appearance: Unkempt (cachectic frame), Disheveled Mood: Withdrawn Affect: Mood Congruent, Constricted Patient Behavior: Sedated (moderately sedated ; answers questions slowly; falls asleep during interview), Fatigued Speech Pattern: Delayed, Slurred Voice Loudness: Moderately Soft/Quiet Thought Process: Disoriented Thought Disorder: Not Present Hallucinations: Denies (has experienced hearing voices during state of intoxication; not now) Suicidal Ideation: Denies Homicidal Ideation: Denies Insight/Judgement: Poor Sleep: Poorly, Difficulty falling asleep (at night) Appetite: Poor, Weight loss Gait/Station: Other (not observed; bedridden for entire morning) Psychiatric Findings - Problem List ([place] 1, 2,3) (1) Opioid dependence with withdrawal Current Visit: Yes Status: Acute (2) Cocaine dependence Current Visit: Yes Status: Chronic Qualifiers: Substance use status: uncomplicated Qualified Code(s): F14.20 - Cocaine dependence, uncomplicated (3) Nicotine dependence Current Visit: Yes Status: Chronic (4) Schizoaffective disorder Current Visit: Yes Status: Chronic Comment: By history. (5) Substance induced mood disorder Current Visit: Yes Status: Chronic (6) Non-compliance Current Visit: Yes Status: Chronic - Initial Treatment Plan Initial Treatment Plan: Psychoeducation. Sleep hygiene. Detoxification. Seroquel 50 mg po hs (reduced) is ordered at patient's request. Side effects/ benefits discussed (patient welcomes the prospect of weight gain). Verbal consent given to MD. Muñoz.
[2019-02-23] MEDS ORDERED: QUEtiapine FUMARATE 100 MG TABLET (FP) PO SCH (22:00)
[2019-02-23] MEDS: THIAMINE HCL 100 MG TABLET (FP) PO SCH (22:26)
[2019-02-24] MEDS ORDERED: METHADONE HCL 10 MG TABLET (FOR DETOX USE ONLY) ONE (09:12)
[2019-02-24] MEDS ORDERED: METHADONE HCL 5 MG TABLET (FOR DETOX USE ONLY) ONE (09:13)
[2019-02-24] MEDS: amLODIPine BESYLATE 5 MG TABLET (FP) PO SCH (09:37)
[2019-02-24] MEDS: PRENATAL VITAMINS W/ FOLIC ACID TABLET (FP) PO SCH (09:37)
[2019-02-24 09:49] VITALS: BP 124/78; PULSE 53; TEMP 98.7
[2019-02-24] MEDS ORDERED: METHADONE (DETOX) 10 MG, METHADONE (DETOX) 5 MG PO ONE (10:00)
[2019-02-24] MEDS ORDERED: METHADONE HCL 10 MG TABLET (FOR DETOX USE ONLY) PO ONE (10:00)
[2019-02-24] MEDS: SULFAMETHOXAZOLE/TRIMETHOPRIM 800MG/160MG D.S. TABLET PO SCH (11:17)
--- NOTE | 2019-02-24 15:47 | DS ---
[facility] Detox Discharge Summary Admission Date: 02/21/19 Discharge Date: 02/24/19 - History Present History: Opioid Dependence Additional Comments: 58 years old male admitted on 02/21/19 for opiate withdrawal stabilization completed detox regimen aftercare [facility] Pertinent Past History: bring in medication list and lab report to aftercare appointment - Physical Exam Results Vital Signs: Vital Signs Temperature 98.7 F 02/24/19 09:48 Pulse Rate 53 L 02/24/19 09:48 Respiratory Rate 20 02/24/19 09:48 Blood Pressure 124/78 02/24/19 09:48 O2 Sat by Pulse Oximetry (%) Pertinent Admission Physical Exam Findings: opiate withdrawal sx Laboratory Last Values WBC 5.2 K/mm3 (4.0-10.0) 02/21/19 13:40 RBC 5.07 M/mm3 (4.00-5.60) 02/21/19 13:40 Hgb 14.5 GM/dL (11.7-16.9) 02/21/19 13:40 Hct 45.4 % (35.4-49) 02/21/19 13:40 MCV 89.7 fl (80-96) 02/21/19 13:40 MCH 28.7 pg (25.7-33.7) 02/21/19 13:40 MCHC 32.0 g/dl (32.0-35.9) 02/21/19 13:40 RDW 14.4 % (11.9-15.9) 02/21/19 13:40 Plt Count 213 K/MM3 (134-434) 02/21/19 13:40 MPV 10.1 fl (7.5-11.1) 02/21/19 13:40 Sodium 141 mmol/L (136-145) 02/21/19 13:40 Potassium 3.9 mmol/L (3.5-5.1) 02/21/19 13:40 Chloride 105 mmol/L (98-107) 02/21/19 13:40 Carbon Dioxide 33 mmol/L (21-32) H 02/21/19 13:40 Anion Gap 4 MMOL/L (8-16) L 02/21/19 13:40 BUN 17 mg/dL (7-18) 02/23/19 08:10 Creatinine 1.3 mg/dL (0.55-1.3) 02/21/19 13:40 Est GFR (CKD-EPI)AfAm 69.71 02/21/19 13:40 Est GFR (CKD-EPI)NonAf 60.14 02/21/19 13:40 Random Glucose 98 mg/dL (74-106) 02/21/19 13:40 Calcium 9.1 mg/dL (8.5-10.1) 02/21/19 13:40 Total Bilirubin 0.4 mg/dL (0.2-1) 02/21/19 13:40 AST 21 U/L (15-37) 02/21/19 13:40 ALT 25 U/L (13-61) 02/21/19 13:40 Alkaline Phosphatase 77 U/L (45-117) 02/21/19 13:40 Total Protein 7.2 g/dl (6.4-8.2) 02/21/19 13:40 Albumin 4.0 g/dl (3.4-5.0) 02/21/19 13:40 Urine Color Dk yellow 02/21/19 14:37 Urine Appearance Cloudy 02/21/19 14:37 Urine pH 5.5 (5.0-8.0) 02/21/19 14:37 Ur Specific [place] 1.028 (1.010-1.035) 02/21/19 14:37 Urine Protein 1+ (NEGATIVE) H 02/21/19 14:37 Urine Glucose (UA) Negative (NEGATIVE) 02/21/19 14:37 Urine Ketones Trace (NEGATIVE) H 02/21/19 14:37 Urine Blood Trace (NEGATIVE) 02/21/19 14:37 Urine Nitrite Negative (NEGATIVE) 02/21/19 14:37 Urine Bilirubin Negative (NEGATIVE) 02/21/19 14:37 Urine Urobilinogen 1.0 mg/dL (0.2-1.0) 02/21/19 14:37 Ur Leukocyte Esterase 2+ (NEGATIVE) H 02/21/19 14:37 Urine WBC (Auto) 329 /hpf (0-5) 02/21/19 14:37 Urine RBC (Auto) 3 /hpf (0-4) 02/21/19 14:37 Urine Casts (Auto) 4 /lpf (0-8) 02/21/19 14:37 U Epithel Cells (Auto) 2.2 /HPF (0-5/HPF) 02/21/19 14:37 Urine Crystals (Auto) Moderate /hpf 02/21/19 14:37 Urine Bacteria (Auto) 7.3 /hpf (NEGATIVE) 02/21/19 14:37 RPR Titer Nonreactive (NONREACTIVE) 02/21/19 13:40 lab noted uti - Treatment Hospital Course: Detox Protocol Followed, Detoxed Safely, Responded well, Discharged Condition Good, Rehab Referral Accepted Patient has Accepted a Rehab Referral to: [facility] - Medication Discharge Medications: Ambulatory Orders Quetiapine Fumarate "Xr" [Seroquel XR] 150 mg PO HS@1999 #30 tablet 08/26/14 Amlodipine Besylate [Norvasc -] 5 mg PO DAILY 14 Days #14 tablet 02/24/19 Sulfamethoxazole/Trimethoprim [Bactrim DS -] 1 each PO BID #10 tablet 02/24/19 - Diagnosis (1) Opioid dependence with withdrawal Status: Acute (2) Weight loss Status: Acute (3) Essential hypertension Status: Chronic (4) Hypertension Status: Chronic Qualifiers: Hypertension type: essential hypertension Qualified Code(s): I10 - Essential (primary) hypertension (5) Nicotine dependence Status: Acute (6) Substance induced mood disorder Status: Suspected - AMA Did Patient Leave Against Medical Advice: No
[2019-02-25] MEDS ORDERED: METHADONE HCL 5 MG TABLET (FOR DETOX USE ONLY) PO ONE (06:00)
[2019-02-25] MEDS ORDERED: METHADONE HCL 10 MG TABLET (FOR DETOX USE ONLY) PO ONE (10:00)
[2019-02-26] MEDS ORDERED: METHADONE HCL 5 MG TABLET (FOR DETOX USE ONLY) PO ONE (06:00)
== END 2019-02-24 13:00 | disposition home or self-care (01) | DRG 773 ==
LOC: YASAS 10:45 → Y3N 13:45
PROVIDERS: ADMIT Surgery; ATTEND Surgery
PROC: HZ2ZZZZ Detoxification Services for Substance Abuse Treatment (ICD-10-PCS; principal; 2019-02-21)
DX: F11.23 Opioid dependence with withdrawal (principal); F14.20 Cocaine dependence, uncomplicated; F17.210 Nicotine dependence, cigarettes, uncomplicated; F19.24 Other psychoactive substance dependence with psychoactive substance-induced mood disorder; F25.9 Schizoaffective disorder, unspecified; F51.05 Insomnia due to other mental disorder; I10 Essential (primary) hypertension; R63.4 Abnormal weight loss; N39.0 Urinary tract infection, site not specified; R79.89 Other specified abnormal findings of blood chemistry; Z91.14 Patient's other noncompliance with medication regimen
CPT/HCPCS: 36415; 80053; 81003; 84520; 85027; 86593; J0735